=== PATIENT | male | born 1980 | race Hispanic/Latino ===

== ENCOUNTER 2018-04-02 16:59 | Emergency (ER) | payer OTHER, SELFPAY ==
[2018-04-02] MEDS ORDERED: Diazepam 5 MG TAB ONE (17:09)
[2018-04-02] MEDS ORDERED: Ketorolac Tromethamine 30 MG/ML VIAL ONE (17:09)
[2018-04-02] MEDS ORDERED: Acetaminophen 325 MG TAB ONE (17:20)
--- NOTE | 2018-04-02 19:15 | CT ---
CT CERVICAL SPINE WITHOUT CONTRAST: Indication: Neck pain and stiffness. Comparison: None. FINDINGS: No acute fracture or subluxation is evident. The osseous central canal is preserved. Craniocervical j unction is normal appearing. The lung apices are clear. The prevertebral soft tissues appear within n ormal limits. IMPRESSION: No acute fracture or subluxation is identified. POS: BH
--- NOTE | 2018-04-02 19:35 | RAD ---
RADIOGRAPH CERVICAL SPINE 3 VIEWS: DATE: 04-02-18 TIME: 5:41 p.m. HISTORY: 38-year-old male with nontraumatic left sided cervicalgia. COMPARISON: None. FINDINGS: On both of the two lateral views submitted, the levels inferior to the C6-7 level are obscured by the shoulders. In fact, the C7 vertebral body is almost completely obscured. On one of the two lateral v iews that are submitted, there is an appearance of offset of one of the bilateral facet joints at C5- 6. Vertebral body heights are maintained. Disc spaces are maintained. Vertebral bodies have apparentl y normal alignment. The head and upper cervical spine are tilted to the right on the AP view. No prev ertebral soft tissue swelling. Odontoid is intact. Atlantoaxial joints are normal. IMPRESSION: 1. Probable torticollis. 2. Questionable jumped or perched facet at C5-6. Recommend CT of the cervical spine for better evalua tion. 3. No other abnormality identified. MARYAN POS: TOM
== END 2018-04-02 19:45 | disposition home or self-care (01) ==
LOC: ERS 16:59
DX: S16.1XXA Strain of muscle, fascia and tendon at neck level, initial encounter (principal); X58.XXXA Exposure to other specified factors, initial encounter
CPT/HCPCS: 72040; 72125; 96372; J1885

== ENCOUNTER 2020-06-15 10:43 | Emergency (ER) | payer SELFPAY ==
[2020-06-15 12:54] LABS: #Eosinphils 0.1 thou/uL (0.0-0.7); #Lymphocytes 1.8 thou/uL (1.20-3.40); #Monocytes 0.6 thou/uL (0.11-0.59); #Neutrophils 7.3 thou/uL (1.40-6.50); %Basophils 0.3 % (0.0-1.0); %Eosinophils 0.9 % (0.0-10.0); %Lymphocytes 18.2 % (21.0-51.0); %Monocytes 5.9 % (0.0-10.0); %Neutrophils 74.7 % (42.0-75.0); Hemoglobin 16.1 g/dL (14.0-18.0); Mean Corpuscular HGB CONC 35.1 g/dL (32.0-36.0); Mean Corpuscular Hemoglobin 31.9 pg (27.0-31.0); Mean Corpuscular Volume 90.7 fL (78.0-98.0); Mean Platelet Volume 7.1 fL (7.4-10.4); Platelet Count 217 thou/uL (130-400); Red Blood Cell (RBC) Count 5.05 mill/uL (4.70-6.10); White Blood Cell (WBC) Count 9.7 thou/uL (4.8-10.8)
[2020-06-15 13:13] LABS: ALT (SGPT) 35 U/L (8-55); AST (SGOT) 17 U/L (5-34); Albumin 4.4 g/dL (3.5-5.0); Alkaline Phosphatase 87 U/L (40-110); Anion Gap 13 mmol/L (10-20); BUN (Urea Nitrogen) 13 mg/dL (8.9-20.6); Bilirubin, Total 0.6 mg/dL (0.2-1.2); Calc. Creatinine Clearance 0 mL/min (70-130); Calcium 9.2 mg/dL (7.8-10.44); Carbon Dioxide 26 mmol/L (22-29); Chloride 104 mmol/L (98-107); Globulin 3.5 g/dL (2.4-3.5); Glucose 110 mg/dL (70-105); Potassium 3.6 mmol/L (3.5-5.1); Protein, Total 7.9 g/dL (6.0-8.3); Sodium 139 mmol/L (136-145)
[2020-06-15] MEDS ORDERED: Ondansetron PF 4 MG/2 ML Vial ONE (13:15)
[2020-06-15] MEDS ORDERED: Ketorolac Tromethamine 30 MG/ML VIAL ONE (13:15)
--- NOTE | 2020-06-15 13:36 | CT ---
EXAM: CT NECK SOFT TISSUE POST CONTRAST: HISTORY:Swollen tonsils. Pain. Swelling, left base greater than right. COMPARISON:None CORRELATION:None FINDINGS: Facial soft tissues: There is mild asymmetric left periorbital soft tissue swelling. Brain parenchyma: No pathologic enhancement of the visualized brain parenchyma. Sinuses: Adequate aeration of the visualized paranasal sinuses and mastoid air cells. Orbits: Appropriate location of the ocular lenses. Symmetric attenuation the optic nerves and ocular rectus muscles. Retrobulbar fat is preserved. Nasopharynx:Adequate aeration. No mucosal abnormality. Oral cavity:Aerodigestive tract is patent. No mucosal abnormality. Limited evaluation of the oral cav ity due to dental amalgam artifact. Midline fatty raphae of the tongue is preserved. Hypopharynx: No mucosal abnormality. Epiglottis has a normal caliber. Preepiglottic fat is preserved .. Larynx: No mucosal abnormality with regards to the supraglottic, glottic and subglottic larynx. Paraspinal muscles: Symmetric attenuation of the paraspinal muscles and symmetric attenuation of the sternocleidomastoid muscles.. Parotid and salivary glands: Symmetric attenuation of the parotid and submandibular glands Vessels: No significant stenosis. Technique limits evaluation. Thyroid gland: Unremarkable. Spine: Vertebral body height is maintained. No fracture. No significant central canal stenosis or sig nificant neural foraminal narrowing. Limited evaluation due to technique. Lymph nodes: Right neck: Enlarged right level 2 lymph node measures 1.4 x 1.0 cm Left neck: Enlarged left level 1 lymph node measures 0.9 x 1.8 cm. Enlarged left level 2 lymph node m easures 1.6 x 1.0 cm. Lung apices and upper mediastinum: Groundglass opacities. Correlate for edema or infiltrate. IMPRESSION: 1. No evidence of peritonsillar abscess. 2. No significant hypertrophy of the Waldeyer's ring. 3. Bilateral mild enlarged level 2 and left level 1 lymph node. 4. Mild left periorbital soft tissue swelling
[2020-06-15] MEDS ORDERED: Iopamidol-370 76% 500 ML 1 ML ONE (16:05)
== END 2020-06-15 13:32 | disposition home or self-care (01) ==
LOC: ERS 10:43
DX: L03.213 Periorbital cellulitis (principal)
CPT/HCPCS: 70491; 80053; 85025; 87081; 87430; 96374; 96375; J1885; J2405; Q9967

== ENCOUNTER 2022-10-10 18:30 | Emergency (ER) | payer SELFPAY ==
[2022-10-10 19:08] LABS: #Eosinphils 0.1 thou/uL (0.0-0.7); #Monocytes 0.4 thou/uL (0.11-0.59); #Neutrophils 4.8 thou/uL (1.40-6.50); %Basophils 0.3 % (0.0-1.0); %Eosinophils 1.6 % (0.0-10.0); %Lymphocytes 27.8 % (21.0-51.0); %Monocytes 4.9 % (0.0-10.0); %Neutrophils 65.5 % (42.0-75.0); Hemoglobin 16.7 g/dL (14.0-18.0); Mean Corpuscular HGB CONC 35.4 g/dL (32.0-36.0); Mean Corpuscular Hemoglobin 32.7 pg (27.0-31.0); Mean Corpuscular Volume 92.3 fl (78.0-98.0); Mean Platelet Volume 7.3 fL (7.4-10.4); Platelet Count 233 10x3/uL (130-400); RBC Distribution Width 12.1 % (11.5-14.5); Red Blood Cell (RBC) Count 5.12 mill/uL (4.70-6.10); White Blood Cell (WBC) Count 7.3 10x3/uL (4.8-10.8)
[2022-10-10 19:12] LABS: Albumin 4.7 g/dL (3.5-5.0)
[2022-10-10 19:23] LABS: ALT (SGPT) 33 U/L (8-55); AST (SGOT) 17 U/L (5-34); Alkaline Phosphatase 80 U/L (40-110); BUN (Urea Nitrogen) 20 mg/dL (8.9-20.6); Bilirubin, Total 0.6 mg/dL (0.2-1.2); Calc. Creatinine Clearance 0 mL/min (70-130); Calcium 9.5 mg/dL (7.8-10.44); Carbon Dioxide 22 mmol/L (22-29); Chloride 105 mmol/L (98-107); Estimated GFR 61; Globulin 3.2 g/dL (2.4-3.5); Glucose 107 mg/dL (70-105); Lipase 58 U/L (8-78); Potassium 3.6 mmol/L (3.5-5.1); Sodium 138 mmol/L (136-145)
[2022-10-10] MEDS ORDERED: Ketorolac Tromethamine 30 MG/ML VIAL ONE (19:31)
[2022-10-10] MEDS ORDERED: Ondansetron PF 4 MG/2 ML Vial ONE (19:31)
[2022-10-10 19:51] LABS: Anion Gap 15 mmol/L (10-20)
[2022-10-10] MEDS ORDERED: Morphine 4 MG/ML VIAL ONE (20:34)
[2022-10-10 21:15] LABS: Bacteria/HPF None Seen HPF (None Seen); Bilirubin Negative (Negative); Blood, Urine 3+ (Negative); Clarity Clear (Clear); Glucose, Urine (Dipstick) Normal (Negative); Ketone, Urine Negative (Negative); Leukocyte Negative Leu/uL (Negative); Nitrite Negative (Negative); Protein, Urine (Dipstick) Negative (Neg-Trace); RBC/HPF Greater than 50 HPF (0-3); Specific Gravity, Urine 1.028 (1.002-1.036); Squamous Epithelial None Seen HPF (0-3); Urobilinogen Normal mg/dL (Less than 2); WBC/HPF 0-3 HPF (0-3)
== END 2022-10-10 22:11 | disposition home or self-care (01) ==
LOC: ERS 18:30
DX: N20.1 Calculus of ureter (principal)
CPT/HCPCS: 36415; 74176; 80053; 81003; 81015; 83690; 85025; 96374; 96375; J1885; J2270; J2405

== ENCOUNTER 2023-01-12 15:59 | Outpatient (CLI) | payer OTHER | END 2023-01-12 16:00 | disposition home or self-care (01) | LOC: BICRAD 15:59 | PROVIDERS: ATTEND Nurse Practitioner Family | DX: M25.562 Pain in left knee (principal); M17.12 Unilateral primary osteoarthritis, left knee ==